=== PATIENT | female | born 1980 | race Caucasian/White ===

== ENCOUNTER 2017-03-15 18:58 | Emergency (ER) | payer OTHER ==
[2017-03-15] MEDS ORDERED: Sodium Chloride 0.9% 1,000 ML IV ONE (20:14)
[2017-03-15] MEDS ORDERED: Sodium Chloride 0.9% 1,000 ML ONE (20:41)
[2017-03-15 20:43] LABS: BASO % 0.5 % (0.0-2.0); EOS # 0.1 K/uL (0.0-0.7); EOS % 1.1 % (0.0-4.0); HEMATOCRIT 34.2 % (34.0-47.0); LYMPH % 33.8 % (20.0-40.0); MEAN CELL VOLUME 79.8 fL (81.0-99.0); MEAN CORPUSCULAR HEMOGLOBIN 26.6 pg (27.0-31.0); MEAN CORPUSCULAR HGB CONC 33.3 g/dL (33.0-37.0); MEAN PLATELET VOLUME 7.5 fL (7.2-11.7); MONO # 0.4 K/uL (0.0-0.8); MONO % 7.2 % (0.0-10.0); NRBC % 0.2 % (0.0-2.0); WHITE BLOOD COUNT 5.9 K/uL (4.8-10.8)
[2017-03-15 20:46] LABS: RBC URINE < 1 /hpf (0-3); URINE BACTERIA RARE (<OCC); URINE BILIRUBIN NEGATIVE (NEGATIVE); URINE BLOOD NEGATIVE (NEGATIVE); URINE COLOR Yellow (YELLOW); URINE GLUCOSE (UA) NORMAL (Normal); URINE KETONE NEGATIVE (NEGATIVE); URINE LEUKOCYTE ESTERASE NEG Leu/uL (Negative); URINE PROTEIN NEGATIVE (NEGATIVE); URINE UROBILINOGEN NORMAL mg/dL (0.2-1.0); WBC URINE 1 /hpf (0-5)
[2017-03-15 20:54] LABS: CHLORIDE 98 mmol/L (98-107); SODIUM 136 mmol/L (132-148)
[2017-03-15 20:56] LABS: GFR AFRICAN-AMERICAN > 60
[2017-03-15 20:57] LABS: ALB/GLOB RATIO 1.1 (1.0-2.1); ALKALINE PHOSPHATASE 35 U/L (38-126); ALT/SGPT 12 U/L (9-52); AST/SGOT 18 U/L (14-36); BILIRUBIN,TOTAL 0.3 mg/dL (0.2-1.3); BLOOD UREA NITROGEN 8 mg/dL (7-17); CARBON DIOXIDE 25 mmol/L (22-30); GLUCOSE,RANDOM 85 mg/dL (65-105); TOTAL PROTEIN 6.8 g/dL (6.3-8.3)
[2017-03-15 20:58] LABS: CALCIUM 8.7 mg/dl (8.6-10.4)
--- NOTE | 2017-03-15 22:49 | US ---
EXAM: US Abdomen Complete CLINICAL HISTORY: 37 years old, female; Pain; Other: Epigastric pain TECHNIQUE: Real-time ultrasound of the abdomen (complete) with image documentation. COMPARISON: No relevant prior studies available. FINDINGS: Liver: No acute findings. No intrahepatic bile duct dilation. The liver is unremarkable in size measuring 14.2 cm in longitudinal dimension. Gallbladder: No acute findings. No gallstones. Common bile duct: No stones. No dilation, measuring 2.3 mm. Pancreas: Visualization of the pancreas is limited by overlying bowel gas. Right kidney: Unremarkable in echogenicity and size measuring 10.2 x 4.4 x 4.3 cm. No hydronephrosis. Left Kidney: Unremarkable in echogenicity and size measuring 10.3 x 5.6 x 5.2 cm. No hydronephrosis. Spleen: Unremarkable in echogenicity and size measuring 9.2 cm in longitudinal dimension. Aorta: Unremarkable. Inferior vena cava: patent. IMPRESSION: Limited evaluation of the pancreas, secondary to overlying bowel gas. Otherwise, unremarkable sonographic evaluation of the abdomen, as detailed above.
--- NOTE | 2017-03-15 22:49 | C.PDOC ---
History Of Present Illness 37 year old female who presents to the ER with a complaint of 1 wk h/o an acidic , gassy, constant, non-radiating epigastric pain, worse x 2 days, with 1 episode of vomiting yesterday, none today. Denies nausea, diarrhea, fever, chills, SOB, CP, back pain, dysuria, or hematuria. Denies any abdominal surgeries. Reports not taking any medications for her symptoms. Time Seen by Provider: 03/15/17 20:01 Chief Complaint (Nursing): Abdominal Pain History Per: Patient History/Exam Limitations: no limitations Onset/Duration Of Symptoms: Days Current Symptoms Are (Timing): Still Present Radiation Of Pain To:: None Quality Of Discomfort: Gas, Other (Acidic) Associated Symptoms: Vomiting. denies: Fever, Chills, Diarrhea, Urinary Symptoms Exacerbating Factors: None Alleviating Factors: None Recent travel outside of the [place]: No Abnormal Vaginal Bleeding: No Past Medical History Reviewed: Historical Data, Nursing Documentation, Vital Signs Vital Signs: Last Vital Signs Temp 97.8 F 03/16/17 00:07 Pulse 70 03/16/17 00:07 Resp 14 03/16/17 00:07 BP 110/70 03/16/17 00:07 Pulse Ox 98 03/16/17 00:07 - Medical History PMH: No Chronic Diseases Surgical History: No Surg Hx Family History: States: Unknown Family Hx - Social History Hx Tobacco Use: No Hx Alcohol Use: No Hx Substance Use: No - Immunization History Hx Tetanus Toxoid Vaccination: No Hx Influenza Vaccination: No Hx Pneumococcal Vaccination: No Review Of Systems Except As Marked, All Systems Reviewed And Found Negative. Constitutional: Negative for: Fever, Chills Respiratory: Negative for: Shortness of Breath Gastrointestinal: Positive for: Vomiting. Negative for: Nausea, Diarrhea Genitourinary: Negative for: Dysuria, Hematuria Physical Exam - Physical Exam Appears: Well, Non-toxic, Other (Mild painful distress) Skin: Normal Color, Warm, Dry Head: Atraumatic, Normacephalic Eye(s): bilateral: Normal Inspection, PERRL, EOMI Oral Mucosa: Moist Throat: Normal Neck: Normal, Supple Chest: Symmetrical, No Tenderness Cardiovascular: Rhythm Regular, No Murmur Respiratory: Normal Breath Sounds, No Rales, No Rhonchi, No Wheezing Gastrointestinal/Abdominal: Soft, No Tenderness, No Organomegaly, No Mass, No Distention, No Guarding, No Rebound, Other (negative Cote's sign) Back: Normal Inspection, No CVA Tenderness, No Vertebral Tenderness Extremity: Normal ROM, No Tenderness, No Deformity, No Swelling Pulses: Left Radial: Normal, Right Radial: Normal Neurological/Psych: Oriented x3, Normal Speech, Normal Cognition, Normal Cranial Nerves, Normal Motor, Normal Sensation ED Course And Treatment - Laboratory Results Result Diagrams: 03/15/17 20:39 03/15/17 20:39 O2 Sat by Pulse Oximetry: 100 (Room air) Pulse Ox Interpretation: Normal - CT Scan/US US abdomen Other Rad Studies (CT/US): Radiology Report Reviewed CT/US Interpretation: FINDINGS: Liver: No acute findings. No intrahepatic bile duct dilation. The liver is unremarkable in size. measuring 14.2 cm in longitudinal dimension. Gallbladder: No acute findings. No gallstones. Common bile duct: No stones. No dilation, measuring 2.3 mm. Pancreas: Visualization of the pancreas is limited by overlying bowel gas. Right kidney: Unremarkable in echogenicity and size measuring 10.2 x 4.4 x 4.3 cm. No. hydronephrosis. Left Kidney: Unremarkable in echogenicity and size measuring 10.3 x 5.6 x 5.2 cm. No. hydronephrosis. Spleen: Unremarkable in echogenicity and size measuring 9.2 cm in longitudinal dimension. Aorta: Unremarkable. Inferior vena cava: patent. IMPRESSION: Limited evaluation of the pancreas, secondary to overlying bowel gas. Otherwise, unremarkable sonographic evaluation of the abdomen, as detailed above. Dictated and Authenticated by: Danii Agarwal MD. 03/15/2017 10:49 PM Eastern Time ([place] & [place]) Medical Decision Making Medical Decision Makin37 year old female who presents to the ER with a complaint of 1 wk h/o an acidic , gassy, constant, non-radiating epigastric pain, worse x 2 days. DDx: dyspepsia, r/o acute cholecystitis, consider biliary colic Plan: * Pepcid * Zofran * IV fluids * CBC * CMP * UA * Uhcg * Urine Culture Lab results reviewed and are wnl. Uhcg (-). Abd US shows no acute findings. On re-evaluation, pt reports feeling much improved. Reports significant improvement of her abdominal pain. On exam, patient is laying in bed comfortably in no acute distress. Abdomen is soft with no tenderness to deep palpation, no guarding, and no rebound, no CVA tenderness. Diagnostic results d/w the pt in great detail. Rxs provided to the pt and instructed to take as prescribed. Otherwise, advised to follow up with referral provided in 2 days for re-evaluation. Return to the ER at any time for any new or worsening symptoms. Disposition Counseled Patient/Family Regarding: Studies Performed, Diagnosis, Need For Followup, Rx Given - Disposition Referrals: Jocelyn Quinones MD [Staff Provider] - [facility] [Outside] Disposition: HOME/ ROUTINE Disposition Time: 23:15 Condition: IMPROVED Additional Instructions: Follow up with your pmd in 2 days for re-evaluation. Take medication as prescribed. Return to the ER at any time for any new or worsening symptoms. Prescriptions: Famotidine [Pepcid] 40 mg PO DAILY #20 tablet Ondansetron ODT [Zofran ODT] 4 mg PO DAILY PRN #20 odt PRN Reason: Nausea/Vomiting Instructions: Chronic Indigestion (ED) Forms: [employer] (Montserratian), Work Excuse Print Language: BARBADIAN - Clinical Impression Clinical Impression: Abdominal pain, Dyspepsia - PA / SAND POLISHER / Resident Statement MD/DO has reviewed & agrees with the documentation as recorded. - Scribe Statement The provider has reviewed the documentation as recorded by the Scribe Geovani Sutherland All medical record entries made by the Scribe were at my direction and personally dictated by me. I have reviewed the chart and agree that the record accurately reflects my personal performance of the history, physical exam, medical decision making, and the department course for this patient. I have also personally directed, reviewed, and agree with the discharge instructions and disposition.
[2017-03-16 00:09] VITALS: BP 110/70; PULSE 70; RESP 14; TEMP 97.8
[2017-03-16 01:47] VITALS: O2SAT 100
== END 2017-03-16 00:09 | disposition home or self-care (01) ==
LOC: C.ER 18:58
DX: R10.13 Epigastric pain (principal)
CPT/HCPCS: 76700; 80053; 81001; 83690; 85025; 87086; 96374; 96375; 99283; J2405; J7040

== ENCOUNTER 2018-05-01 19:02 | Emergency (ER) | payer OTHER ==
[2018-05-01 19:18] VITALS: BP 134/81; PULSE 74; RESP 16; TEMP 98.4; O2SAT 100
--- NOTE | 2018-05-01 20:39 | C.PDOC ---
History Of Present Illness 38 y/o female comes in for evaluation of posterior neck and diffuse back pain, gradually developing for the past 3 days. Patient reports, pain is aching, worse with movement. Admits to heavy lifting at work. No direct trauma or injury. Otherwise, patient denies fever, chills, headache, dizziness, vertigo, CP, SOB, dyspnea, palpitation, abd. pain, saddle anesthesia, incontinence, UTI symptoms, denies B/L UEs and LEs extr. weakness, or sensorivascular deficits. AMbulate to Ed for evaluation, not in nay apparent distress. Time Seen by Provider: 05/01/18 19:25 Chief Complaint (Nursing): Back Pain History Per: Patient History/Exam Limitations: no limitations Onset/Duration Of Symptoms: Days Current Symptoms Are (Timing): Still Present Past Medical History Reviewed: Historical Data, Nursing Documentation, Vital Signs Vital Signs: Last Vital Signs Temp 98.4 F 05/01/18 19:16 Pulse 74 05/01/18 19:16 Resp 16 05/01/18 19:16 BP 134/81 05/01/18 19:16 Pulse Ox 100 05/01/18 20:40 - Medical History PMH: No Chronic Diseases Surgical History: Family History: States: Unknown Family Hx - Social History Hx Tobacco Use: No Hx Alcohol Use: No Hx Substance Use: No - Immunization History Hx Tetanus Toxoid Vaccination: No Hx Influenza Vaccination: No Hx Pneumococcal Vaccination: No Review Of Systems Except As Marked, All Systems Reviewed And Found Negative. Constitutional: Negative for: Fever, Chills Respiratory: Negative for: Shortness of Breath Gastrointestinal: Negative for: Nausea, Vomiting, Abdominal Pain Genitourinary: Negative for: Dysuria, Frequency, Incontinence, Hematuria Musculoskeletal: Positive for: Neck Pain, Back Pain Neurological: Negative for: Weakness, Numbness, Incoordination Physical Exam - Physical Exam Appears: Well, Non-toxic, No Acute Distress Skin: Normal Color, Warm, No Rash, No Ecchymosis Head: Atraumatic, Normacephalic Eye(s): bilateral: PERRL Nose: No Deformity, No Tenderness Oral Mucosa: Moist Neck: Trachea Midline, No Midline Cervical Tenderness, Paracervical Tenderness ( Diffuse paraspinal cervical tenderness extend down to upper back. No midline tenderness, no skin changes), Supple Chest: Symmetrical, No Deformity, No Tenderness Cardiovascular: Rhythm Regular, No Murmur, No JVD Respiratory: No Decreased Breath Sounds, No Accessory Muscle Use, No Stridor, No Wheezing Gastrointestinal/Abdominal: Soft, No Tenderness, No Distention Back: No CVA Tenderness, No Vertebral Tenderness, Paraspinal Tenderness ( diffuse lumbar) Extremity: Normal ROM, No Tenderness, No Deformity, No Swelling Extremity: Bilateral: Atraumatic, Normal Color And Temperature, Normal ROM Neurological/Psych: Oriented x3, Normal Speech, Normal Motor, Normal Sensation, Normal Reflexes Gait: Steady ED Course And Treatment - Laboratory Results Urine POC: Negative O2 Sat by Pulse Oximetry: 100 (RA) Pulse Ox Interpretation: Normal Progress Note: Patient given motrin and gabapentin PO. UA ordered and reviewed. On re-evaluation, pt is afebrile, hemodynamicaly stable. Non-toxic. AMbulatory in ED. PulsEOx 100% RA. Head: AT/NC. ENT: no acute findings. neck : Supple, (-) meningeal sign. Lungs: CTA B/L, BS equal B/L. CVS: (+)S1S2, reg. Abd: benign, (-) guarding, (-) rebound. Neurologicaly intact. Pt has clinical findings c/w cervical, lower back strain. Pt advised on course of ds. ref. to f/u with PMD in 1 -2 days for re-eval. Return to Ed if any worsening or new changes. Disposition Counseled Patient/Family Regarding: Studies Performed, Diagnosis, Need For Followup, Rx Given - Disposition Referrals: Graciela Yanez MD [Medical Doctor] - Disposition: HOME/ ROUTINE Disposition Time: 20:10 Condition: STABLE Additional Instructions: Light duty, avoid heavy lifting for 1 week take pain medication as prescribed as need Follow up with PMD in 2-3 days for re-evaluation. return to ED if any worsening or new changes. Prescriptions: Gabapentin [Neurontin] 300 mg PO HS #7 cap Ibuprofen [Motrin] 1 tab PO TID PRN #30 tab PRN Reason: Pain Methocarbamol [Robaxin] 500 mg PO TID #14 tab Instructions: Cervical Muscle Strain, Upper Back Pain Forms: [employer] (Bulgarian) Print Language: CHINESE - Clinical Impression Clinical Impression: Low back strain, Cervical strain - PA / SCHOOL ADMISSIONS REPRESENTATIVE / Resident Statement MD/DO has reviewed & agrees with the documentation as recorded. - Scribe Statement The provider has reviewed the documentation as recorded by the Scribe (Eileen Barr) All medical record entries made by the Scribe were at my direction and personally dictated by me. I have reviewed the chart and agree that the record accurately reflects my personal performance of the history, physical exam, medical decision making, and the department course for this patient. I have also personally directed, reviewed, and agree with the discharge instructions and disposition.
[2018-05-01 20:51] LABS: SQUAMOUS EPITHIAL 7 /hpf (0-5); URINE BACTERIA RARE (<OCC); URINE BILIRUBIN NEGATIVE (NEGATIVE); URINE BLOOD NEGATIVE (NEGATIVE); URINE CLARITY Clear (Clear); URINE COLOR Yellow (YELLOW); URINE GLUCOSE (UA) NORMAL (Normal); URINE LEUKOCYTE ESTERASE NEG Leu/uL (Negative); URINE PROTEIN NEGATIVE (NEGATIVE); URINE UROBILINOGEN NORMAL mg/dL (0.2-1.0)
== END 2018-05-01 21:04 | disposition home or self-care (01) ==
LOC: C.ER 19:02
DX: S16.1XXA Strain of muscle, fascia and tendon at neck level, initial encounter (principal); S39.012A Strain of muscle, fascia and tendon of lower back, initial encounter; X50.0XXA Overexertion from strenuous movement or load, initial encounter; Y92.89 Other specified places as the place of occurrence of the external cause; Y99.8 Other external cause status

== ENCOUNTER 2018-07-30 04:22 | Emergency (ER) | payer OTHER ==
[2018-07-30 05:45] LABS: BASO % 0.4 % (0.0-2.0); EOS # 0.2 K/uL (0.0-0.7); EOS % 3.2 % (0.0-4.0); HEMOGLOBIN 11.6 g/dL (11.0-16.0); LYMPH # 1.9 K/uL (1.0-4.3); LYMPH % 38.1 % (20.0-40.0); MEAN CELL VOLUME 80.5 fL (81.0-99.0); MEAN CORPUSCULAR HEMOGLOBIN 26.6 pg (27.0-31.0); MEAN CORPUSCULAR HGB CONC 33.1 g/dL (33.0-37.0); MEAN PLATELET VOLUME 7.8 fL (7.2-11.7); MONO # 0.4 K/uL (0.0-0.8); MONO % 8.9 % (0.0-10.0); NEUT # 2.4 K/uL (1.8-7.0); NEUT % 49.4 % (50.0-75.0); RBC 4.35 Mil/uL (3.80-5.20); RED CELL DISTRIBUTION WIDTH 18.1 % (11.5-14.5); WHITE BLOOD COUNT 4.9 K/uL (4.8-10.8)
[2018-07-30 05:49] LABS: HCG,QUALITATIVE URINE POSITIVE (NEGATIVE)
[2018-07-30 05:53] LABS: SQUAMOUS EPITHIAL 4 /hpf (0-5); URINE BACTERIA OCC (<OCC); URINE BILIRUBIN NEGATIVE (NEGATIVE); URINE BLOOD 3+ (NEGATIVE); URINE CLARITY Hazy (Clear); URINE COLOR Yellow (YELLOW); URINE GLUCOSE (UA) NORMAL (Normal); URINE LEUKOCYTE ESTERASE NEG Leu/uL (Negative); URINE PROTEIN 1+ mg/dL (NEGATIVE); URINE UROBILINOGEN NORMAL mg/dL (0.2-1.0)
--- NOTE | 2018-07-30 05:55 | C.PDOC ---
History Of Present Illness 38 year old female presents to the ER with a complaint of vaginal spotting since yesterday that recurred tonight. Patient states she has been having heavier flow with minimal suprapubic pain. Patient is 10 weeks , . Denies dysuria, nausea, vomiting, fever or chills. Time Seen by Provider: 07/30/18 04:49 Chief Complaint (Nursing): Female Genitourinary History Per: Patient History/Exam Limitations: no limitations Onset/Duration Of Symptoms: Days Current Symptoms Are (Timing): Still Present Associated Symptoms: denies: Fever, Chills, Urinary Symptoms Alleviating Factors: None Recent travel outside of the [place]: No Past Medical History Reviewed: Historical Data, Nursing Documentation, Vital Signs Vital Signs: Last Vital Signs Temp 98.6 F 07/30/18 04:42 Pulse 74 07/30/18 04:42 Resp 20 07/30/18 04:42 BP 128/79 07/30/18 04:42 Pulse Ox 97 07/30/18 04:42 Surgical History: Family History: States: Unknown Family Hx - Social History Hx Tobacco Use: No Hx Alcohol Use: No Hx Substance Use: No - Immunization History Hx Tetanus Toxoid Vaccination: No Hx Influenza Vaccination: No Hx Pneumococcal Vaccination: No Review Of Systems Constitutional: Negative for: Fever, Chills Gastrointestinal: Positive for: Abdominal Pain (Suprapubic). Negative for: Nausea, Vomiting Genitourinary: Positive for: Vaginal Bleeding. Negative for: Dysuria Physical Exam - Physical Exam Appears: Non-toxic Skin: Normal Color, Warm, Dry Head: Atraumatic, Normacephalic Eye(s): bilateral: Normal Inspection Gastrointestinal/Abdominal: Soft, No Tenderness Pelvic: No Cervical Motion Tenderness, No Cervix Open, Other (Minimal bloody discharge.) Neurological/Psych: Oriented x3, Normal Speech ED Course And Treatment - Laboratory Results Result Diagrams: 07/30/18 05:41 07/30/18 05:41 O2 Sat by Pulse Oximetry: 97 (Room air) Pulse Ox Interpretation: Normal Progress Note: Blood work, urinalysis, and transvaginal US ordered. Pt is signed out to ELADIO turner pending US results and dispo Reassessment Condition: Improved Disposition - Disposition Disposition Time: 07:03 Condition: STABLE Forms: [employer] (Danish) - Clinical Impression Clinical Impression: Vaginal bleeding, - PA / PHOTOGRAPHIC PRINTER / Resident Statement MD/DO has reviewed & agrees with the documentation as recorded. - Scribe Statement The provider has reviewed the documentation as recorded by the Scribe Geovani Sutherland All medical record entries made by the Davidibe were at my direction and personally dictated by me. I have reviewed the chart and agree that the record accurately reflects my personal performance of the history, physical exam, medical decision making, and the department course for this patient. I have also personally directed, reviewed, and agree with the discharge instructions and disposition. Physician Patient Turnover Patient Signed Over To: Stacia Turner Handoff Comments: Pending US
[2018-07-30 05:56] LABS: ALB/GLOB RATIO 1.2 (1.0-2.1); ALBUMIN 3.7 g/dL (3.5-5.0); ALT/SGPT 15 U/L (9-52); AST/SGOT 21 U/L (14-36); BLOOD UREA NITROGEN 8 mg/dL (7-17); CALCIUM 8.8 mg/dl (8.6-10.4); GFR NON-AFRICAN AMERICAN > 60
[2018-07-30 07:04] VITALS: TEMP 98.4
[2018-07-30 09:38] VITALS: BP 111/64; PULSE 70; RESP 20; O2SAT 99
--- NOTE | 2018-07-30 12:00 | US ---
Date of service: 07/30/2018 PROCEDURE: OB Pelvic Ultrasound HISTORY: vaginal bleeding 05/15/2018 COMPARISON: None available. FINDINGS: UTERUS: Gestational sac: 30 mm equal to 7 weeks 6 days [place]-rump length 17 mm equal to 8 weeks 0 days. Heart rate: 0 bpm. No cardiac activity detected. age (Ultrasound estimated): 8 weeks 0 days Amara-gestational hemorrhage: Small subchorionic hemorrhage, 2.3 x 0.7 x 1.4 cm. Date of delivery (Ultrasound estimated) : 03/11/2019 Uterus measures 10.6 x 7.2 x 7.3 cm. Intramural/submucosal uterine fibroid, 2.5 x 2.9 x 2.8 cm. Posterior fundal subserosal fibroid, 1.6 x 1.0 x 1.8 cm. No other uterine mass identified. CERVIX: Measures 3.6 cm. Long and closed. No cervical abnormality seen. RIGHT OVARY: Measures 2.8 x 1.4 x 2.6 cm. No mass lesion. Normal flow. LEFT OVARY: Measures 2.5 x 3.1 x 2.5 cm. No solid mass. Normal flow. Nonspecific cyst, 1.4 cm. FREE FLUID: None. OTHER FINDINGS: None. IMPRESSION: Intrauterine gestation of approximately 8 weeks 0 days. No detectable cardiac activity. Findings likely reflect demise. Please correlate with serial beta HCG evaluation. Small subchorionic hemorrhage. Two uterine fibroids. The preliminary findings for this examination were reported by [facility] at 8:22 a.m. on 07/30/2018. There is concurrence of this report with the preliminary findings.
== END 2018-07-30 11:06 | disposition home or self-care (01) ==
LOC: C.ER 04:22
DX: O20.9 Hemorrhage in early pregnancy, unspecified (principal); Z3A.08 8 weeks gestation of pregnancy
CPT/HCPCS: 76805; 76817; 80053; 81001; 84702; 84703; 85025; 86850; 86900; 99285; J2792

== ENCOUNTER 2018-08-01 09:38 | Emergency (ER) | payer OTHER ==
[2018-08-01 09:56] VITALS: RESP 18; O2SAT 100
--- NOTE | 2018-08-01 12:22 | US ---
Date of service: 08/01/2018 PROCEDURE: OB Pelvic Ultrasound HISTORY: DEMISE, REPEAT LMP: 05/15/2018. This suggested gestation of 11 weeks 1 day. COMPARISON: Obstetric ultrasound 07/30/2018. FINDINGS: UTERUS: Gestational sac: A single intrauterine gestation is identified with mean crown-rump length of 14.6 mm corresponding to average ultrasonic age of 7 weeks 6 days. This is as compared to prior crown-rump length of 17 mm corresponding to ultrasonic age of 8 weeks 0 days. Heart rate: None detected. age (Ultrasound estimated): 7 weeks 6 days Amara-gestational hemorrhage: Small areas of hypo echogenicity are appreciate related to the subchorionic space compatible with hemorrhage diminishing in volume measure 1.4 x 0.5 x 0.9 cm compared to 2.3 x 0.7 x 1.4 cm. Date of delivery (Ultrasound estimated) : 03/11/2019. Uterus measures 10.5 x 6.1 x 7.4 cm. Uterus is anteverted an anterior submucous mid fundal fibroid measuring 3.1 x 2.2 x 2.7 cm and a posterior subserosal mid fundal fibroid measure 1.6 x 0.9 x 1.6 cm. CERVIX: Measures 3.2 cm. Long and closed. No cervical abnormality seen. RIGHT OVARY: Measures 2.0 x 1.6 x 1.9 cm. No mass lesion. Normal flow. LEFT OVARY: Measures 3.5 x 2.4 x 3.3 cm. No solid mass. Normal flow. Corpus luteum cyst identified measuring 1.6 x 1.7 x 2.3 cm. FREE FLUID: None. OTHER FINDINGS: None. IMPRESSION: A single intrauterine gestation is identified with ultrasonic age of 7 weeks 6 days and no cardiac activity once again compatible with demise. Diminishing crown-rump length measurement supports demise as well. A small subchorionic hemorrhage volume appears decreased in size. Correlate with serial beta HCG analysis. Two uterine fibroids reiterated.
--- NOTE | 2018-08-01 12:53 | C.PDOC ---
History Of Present Illness 38 year old female presents to the ED for a follow up. Patient was seen on 06/30 and diagnosed with demise. Rhogam IM was given. Patient was instructed to return today for a repeat of tests and ultrasound. She denies any pain, vaginal bleeding, dysuria, hematuria, or any other symptoms since last discharge. Time Seen by Provider: 08/01/18 09:52 Chief Complaint (Nursing): Female Genitourinary History Per: Patient History/Exam Limitations: no limitations Associated Symptoms: denies: Fever, Chills, Nausea, Vomiting, Urinary Symptoms Additional History Per: Prior Records Abnormal Vaginal Bleeding: No Past Medical History Reviewed: Historical Data, Nursing Documentation, Vital Signs Vital Signs: Last Vital Signs Temp 98.8 F 08/01/18 09:53 Pulse 85 08/01/18 09:53 Resp 18 08/01/18 09:53 BP 126/74 08/01/18 09:53 Pulse Ox 100 08/01/18 09:53 - Medical History PMH: No Chronic Diseases Surgical History: Family History: States: No Known Family Hx - Social History Hx Tobacco Use: No Hx Alcohol Use: No Hx Substance Use: No - Immunization History Hx Tetanus Toxoid Vaccination: No Hx Influenza Vaccination: No Hx Pneumococcal Vaccination: No Review Of Systems Except As Marked, All Systems Reviewed And Found Negative. Constitutional: Negative for: Fever, Chills Cardiovascular: Negative for: Chest Pain Gastrointestinal: Negative for: Vomiting, Abdominal Pain Genitourinary: Negative for: Dysuria, Hematuria, Vaginal Discharge, Vaginal Bleeding Physical Exam - Physical Exam Appears: Non-toxic, No Acute Distress Skin: Warm, Dry, No Rash Head: Normacephalic Eye(s): bilateral: Normal Inspection Nose: Normal Oral Mucosa: Moist Neck: Supple Chest: Symmetrical Cardiovascular: Rhythm Regular Respiratory: Normal Breath Sounds, No Rales, No Rhonchi, No Wheezing Gastrointestinal/Abdominal: Soft, Tenderness, No Guarding, No Rebound Extremity: Bilateral: Atraumatic, Normal Color And Temperature, Normal ROM Neurological/Psych: Oriented x3, Normal Speech Gait: Steady ED Course And Treatment O2 Sat by Pulse Oximetry: 100 (RA) Pulse Ox Interpretation: Normal - CT Scan/US US OB Other Rad Studies (CT/US): Read By Radiologist, Radiology Report Reviewed CT/US Interpretation: Accession No. : [id number]. Patient Name / ID : RYLAN Peralta / [id number]. Exam Date : 08/01/2018 11:23:28 ( Approved ). Study Comment : Sex / Age : F / 38Y. Creator : Hector Marcus MD. Dictator : Hector Marcus MD. Lead Sales Consultant : High Heel Builder : Hector Marcus MD. Approver2 : Report Date : 08/01/2018 12:19:08. My Comment : . Date of service: 08/01/2018. PROCEDURE: OB Pelvic Ultrasound. HISTORY: DEMISE, REPEAT. LMP: 05/15/2018. This suggested gestation of 11 weeks 1 day. COMPARISON: Obstetric ultrasound 07/30/2018. FINDINGS: UTERUS: Gestational sac: A single intrauterine gestation is identified with mean crown- rump length of 14.6 mm corresponding to average ultrasonic age of 7 weeks 6 days. This is as compared to prior crown-rump length of 17 mm corresponding to ultrasonic age of 8 weeks 0 days. Heart rate: None detected. age (Ultrasound estimated): 7 weeks 6 days. Amara-gestational hemorrhage: Small areas of hypo echogenicity are appreciate related to the subchorionic space compatible with hemorrhage diminishing in volume measure 1.4 x 0.5 x 0.9 cm compared to 2.3 x 0.7 x 1.4 cm. Date of delivery (Ultrasound estimated) : 03/11/2019. Uterus measures 10.5 x 6.1 x 7.4 cm. Uterus is anteverted an anterior submucous mid fundal fibroid measuring 3.1 x 2.2 x 2.7 cm and a posterior subserosal mid fundal fibroid measure 1.6 x 0.9 x 1.6 cm. CERVIX: Measures 3.2 cm. Long and closed. No cervical abnormality seen. RIGHT OVARY: Measures 2.0 x 1.6 x 1.9 cm. No mass lesion. Normal flow. LEFT OVARY: Measures 3.5 x 2.4 x 3.3 cm. No solid mass. Normal flow. Corpus luteum cyst identified measuring 1.6 x 1.7 x 2.3 cm. FREE FLUID: None. OTHER FINDINGS: None. IMPRESSION: A single intrauterine gestation is identified with ultrasonic age of 7 weeks 6 days and no cardiac activity once again compatible with demise. Diminishing crown-rump length measurement supports demise as well. A small subchorionic hemorrhage volume appears decreased in size. Correlate with serial beta HCG analysis. Two uterine fibroids reiterated. - Physician Consult Information Time Consulting Physician Contacted: 12:55 Physician Contacted: Jennifer A Chris Outcome Of Conversation: AWARE OF ER FINDINGS, ADVISE FU OBGYN Medical Decision Making Medical Decision Making: Plan - US Preg 1st Trimester/OB - Beta-HCG Disposition Counseled Patient/Family Regarding: Studies Performed, Diagnosis, Need For Followup - Disposition Referrals: [facility] [Outside] [facility] [Outside] Disposition: HOME/ ROUTINE Disposition Time: 12:56 Condition: GOOD Additional Instructions: SEGUIR CON MOTT OBGINICO Instructions: Miscarriage (DC) Forms: [employer] (Vietnamese) Print Language: UZBEK - Clinical Impression Clinical Impression: Incomplete miscarriage - Scribe Statement The provider has reviewed the documentation as recorded by the Scribchamp Manning All medical record entries made by the Scribe were at my direction and personally dictated by me. I have reviewed the chart and agree that the record accurately reflects my personal performance of the history, physical exam, medical decision making, and the department course for this patient. I have also personally directed, reviewed, and agree with the discharge instructions and disposition.
[2018-08-01 13:18] VITALS: BP 122/72; PULSE 82; TEMP 98.6
== END 2018-08-01 13:18 | disposition home or self-care (01) ==
LOC: C.ER 09:38
DX: O03.4 Incomplete spontaneous abortion without complication (principal)